=== PATIENT | female | born 1985 | race Caucasian/White ===

== ENCOUNTER → 2018-02-07 | Outpatient (REF) | payer OTHER ==
[~2018-02-07] MED LIST: ACET-1718 PO; CIPDEXPT EACH EAR; IBUP800T37 PO; LEVO1TAB75 PO
== END ==
LOC: ZZSENDIN 13:00
PROVIDERS: ATTEND Obstetrics & Gynecology
DX: Z36.89 Encounter for other specified antenatal screening (principal); Z3A.27 27 weeks gestation of pregnancy
CPT/HCPCS: 82950; 85027

== ENCOUNTER 2018-05-06 06:24 | Inpatient (IN) | payer OTHER ==
[~2018-05-06] VITALS: Ht 175.3 cm; Wt 86.6 kg
[2018-05-09] MEDS ORDERED: OXYTOCIN 30 UNIT/D5LR 500 ML 500 ML IV PRN ×2 (05:22)
[2018-05-09] MEDS ORDERED: FAMOTIDINE(*) 20MG/50ML PREMIX 50 ML IVPB PRN (05:22)
[2018-05-09] MEDS ORDERED: cefOXitin SOD 2 GM VIAL 2 GM in NS(*) 0.9% 100 ML BAG 100 ML IVPB PRN (05:25)
[2018-05-09] MEDS ORDERED: LIDOCAINE/SOD BICARB 8.4% SYR SC PRN ×2 (05:25)
[2018-05-09] MEDS ORDERED: fentaNYL CITR 100 MCG/2 ML AMP IVP PRN (05:25)
[2018-05-09] MEDS ORDERED: MISOPROSTOL 25 MCG CAP PV PRN (05:25)
[2018-05-09] MEDS ORDERED: LIDOCAINE 1% LOCAL 300 MG/30ML INJ PRN (05:25)
[2018-05-09] MEDS ORDERED: TERBUTALINE SULF 1 MG/ML VIAL SUBQ PRN (05:25)
[2018-05-09] MEDS ORDERED: METOCLOPRAMIDE 10 MG/2 ML SDV IVP PRN (05:25)
[2018-05-09 06:00] VITALS: BP 120/68; Ht 175.3 cm; Wt 86.6 kg
[2018-05-09] MEDS: LR(*) 1000 ML BAG 1,000 ML IV PRN ×2 (06:30→11:24)
[2018-05-09 06:33] LABS: PLATELET COUNT, AUTOMATED 204 K/uL (150-450)
[2018-05-09] MEDS ORDERED: PREN-127 PO (07:22)
[2018-05-09] MEDS ORDERED: BUPIVACAINE 0.5% INJ 30ML VIAL EPI PRN (08:05)
[2018-05-09] MEDS ORDERED: LIDOCAINE/PF 2% 200MG/10ML AMP 200 MG/10 ML AMPUL EPI PRN (08:05)
[2018-05-09] MEDS ORDERED: ONDANSETRON 4 MG/2 ML VIAL IVP PRN (08:05)
[2018-05-09] MEDS ORDERED: fentaNYL CITR 100 MCG/2 ML AMP IT PRN (08:05)
[2018-05-09] MEDS ORDERED: FENTANYL/ROPIVACAINE 100 ML BAG EPI PRN (08:05)
[2018-05-09] MEDS ORDERED: BUPIVACAINE 0.25% MPF INJ EPI PRN (08:05)
[2018-05-09] MEDS ORDERED: ePHEDrine 25 MG/5 ML DISP.SYR IVP PRN (08:05)
[2018-05-09] MEDS ORDERED: LIDO/EPI 2% MPF 1:200,000 20ML EPI PRN (08:05)
--- NOTE | 2018-05-09 11:14 | History & Physical ---
History of Present Illness Age of Patient: 32 : 2 Para or TPAL: 1 EDC per LMP: May 06, 2018 Estimated Gestational Age: 40 Chief Complaint Labor induction History of Present Illness Presents for scheduled elective labor induction. History of prior 36 week delivery. This treated with 17OH progesterone for reduced risk. No complications throughout . GBS negative. Past Medical, Surgical, Family and Obstetric Histories reviewed. Please see ACOG chart. History Allergies: Coded Allergies: No Known Drug Allergies (Unverified , 04/30/15) Social History: , works as resource coordinator, has master's degree. No T/E/D. Med Rec Home Meds Reported Medications Vits W-Ca,Fe,Fa(<1MG) ( VITAMINS) 1 Each Tablet, 1 EACH PO DAILY, TAB 05/09/18 Discontinued Scripts Ibuprofen (IBUPROFEN) 800 Mg Tablet, 1 TAB PO Q8H Y for pain, #30 TAB 0 Refills TAKE WITH FOOD EVERY 8 HOURS Prov:JONE PLATT MD 06/12/16 Acetaminophen With Codeine # 3 (ACETAMINOPHEN-COD #3 TABLET) 1 Each Tablet, 1-2 EACH PO Q4H Y for pain, #30 TAB 0 Refills Take 1-2 tablets as needed for pain no closer than every 4 hours. Prov:JONE PLATT MD 06/12/16 Review of Systems All Systems Reviewed/Normal: Yes, Except as Noted Exam General Exam Vital Signs Vital Signs Date Time Temp Pulse Resp B/P (MAP) Pulse Ox O2 Delivery O2 Flow Rate FiO2 05/09/18 06:00 98.2 16 120/68 (85) Room Air General Apperance: Alert/Awake/No Acute Distress Neuro: No Gross deficits Respiratory: No Respiratory Distress Abdomen: Soft, Non-Tender, Non-Distended, Gravid - Non-Tender Extremities: No Cyanosis,Clubbing or Edema Integumentary: Skin Intact without Lesions or Rash Psychological: Alert & Oriented X3, Appropriate Mood & Affect Cervical Dialation: 2 Cervical Effacement (%): 75 Cervical Consistency: Soft Cervical Position: Anterior Station: -2 Presentation: Vertex Fetus Heart Tone Variabilty: Moderate FHT Accelerations: 15X15 FHT Category: I Medical Decision Making Data Points Result Diagram: 05/09/18 0605 VTE Prophylasis: Adult Deep Vein Thrombosis/Pulmonary: No Pharmacological Contraindicati: Pt at Low Risk for VTE Mechanical Contraindications: Pt at Low Risk for VTE 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 Expecting epidural at some point. ZHANNA JARA MD May 09, 2018 11:14
--- NOTE | 2018-05-09 11:24 | Labor Progress Note ---
Labor Subjective Progress Notes Subjective Pain increasing with contractions. Tolerating well. 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 Continue to titrate Pitocin to contractions. Epidural as needed. ZHANNA JARA MD May 09, 2018 11:24
[2018-05-09] MEDS ORDERED: EPIDURAL KEYS XX PRN (12:00)
--- NOTE | 2018-05-09 12:06 | Anesthesia OB Pre-Anes Eval ---
History of Present Illness Anesthesia Start Date: May 09, 2018 Anesthesia Start Time: 11:20 OB Anesthesia Diagnosis: induction - elective EDC: May 06, 2018 : 2 Para: 1 Vital Signs: Vital Signs Date Time Temp Pulse Resp B/P (MAP) Pulse Ox O2 Delivery O2 Flow Rate FiO2 05/09/18 06:00 98.2 16 120/68 (85) Room Air Pain Ratin Result Diagram: 05/09/18 0605 Height (Inches): 69.00 Weight (Pounds): 191 BMI Calculated: 28.20 Past Medical History Medical History: no pertinent history Surgical History: other (ear surgery as a child.) Previous Anesthesia: general, epidural Attended Childbirth Classes?: No Hx Anesthesia Reactions: No Hx Family Anesthesia Reaction: No Current Medications: pitocin Home Meds Reported Medications Vits W-Ca,Fe,Fa(<1MG) ( VITAMINS) 1 Each Tablet, 1 EACH PO DAILY, TAB 05/09/18 Discontinued Scripts Ibuprofen (IBUPROFEN) 800 Mg Tablet, 1 TAB PO Q8H Y for pain, #30 TAB 0 Refills TAKE WITH FOOD EVERY 8 HOURS Prov:JONE PLATT MD 06/12/16 Acetaminophen With Codeine # 3 (ACETAMINOPHEN-COD #3 TABLET) 1 Each Tablet, 1-2 EACH PO Q4H Y for pain, #30 TAB 0 Refills Take 1-2 tablets as needed for pain no closer than every 4 hours. Prov:JONE PLATT MD 06/12/16 Allergies: Coded Allergies: No Known Drug Allergies (Unverified , 04/30/15) Anesthesia OB ROS Neurological: No migraines/headaches, No seizures, No neuropathy, No other ENT: Denies Tooth caps, Denies Loose teeth, Denies Chipped teeth, Denies Dentures, Denies Bridges, Denies Retainers, Denies Veneers, Denies Implants, Denies Tongue ring, Denies Other Pulmonary: No asthma, No smoker (pks/day/yrs), No other Airway Class: ll Cardiovascular ROS: No edema, No arrhythmia, No other GI ROS: clear liquids ROS: No Herpes, No STD(s), No Liver Disease, No Renal Disease, No Other Endocrine ROS: No diabetes, No gestational diabetes, No thyroid disorder, No other Musculoskeletal ROS: No low back pain, No low back injury, No scoliosis, No other ASA Classification: 1 Assessment and Plan Anesthesia Plan: ZACHARIAH DORAN CRNA May 09, 2018 12:06
--- NOTE | 2018-05-09 12:10 | Procedure Note ---
Anesthetic Placement Note Anesthesia Plan: LEB Permit for Anesthesia Signed: Yes Anesthesia Technique: Patient Sitting Anesthesia Prep: Chlorhexidine Interspace: L 3-4 Local Anesthetic: 1% Lidocaine Amount Local - cc's: 3 Anesthesia Needle: 17g Nic/Uzmaff Anesthesia Attempts: 1 (with 2 needle redirections) Loss of Resistance: Normal Saline Depth of NEEMA (cm): 7 Epidural Needle Placement: No CSF, No Blood, No Parasthesia Cerebral Spinal Fluid: No Catheter Insertion (cm): 4 Catheter Type: Dwyer - Spring Wound Epidural Dressing: Tegaderm, Tape, Adhesive [place] Anesthesia Tray: Lot Number ([id number]), Expiration Date (06/24/2019), Reference Number ([id number]) Anesthesia Medications: Epidural Test Dose: 1.5 Lido/Epi (1:200,000), Dose - mL (5mL given in divided doses over 2 minutes.), Time (1141), Negative Epidural Loading Dose: 0.2% Ropivicaine, With Fentanyl 2mcg/ml, Dose - ml (5), Time (1150) Epidural Infusion: 0.2% Ropivicaine, With Fentanyl 2mcg/ml, Start Time: (1150) Epidural Pump Setting: Bolus Dose - mL (4), Lockout - Minutes (15), Maintenance Rate - mL/hr (7), Maximum per Hour - mL (19) Complications: None Comment: 100 mcg Fentanyl bolused via epidural at 1145 ZACHARIAH KIRKPATRICK CRNA May 09, 2018 12:10
--- NOTE | 2018-05-09 12:47 | Anesthesia Progress Note ---
Progress/Maintenance Anesthesia Note Date: May 09, 2018 Anesthesia Note Time: 12:45 Pump: On Pump Rate (ML/HR): 7 Position: Other (lithotomy, ready to push) Drug Bolus: 0.25% Marcaine (6 mL bolus given via epidural ) Anesthesia Treatment: Pt. c/o pain in perineum. Bolus administered. Now pushing. ZACHARIAH KIRKPATRICK CRNA May 09, 2018 12:47
--- NOTE | 2018-05-09 13:13 | OB Delivery Note ---
Delivery Note Vaginal Delivery Type: Spont. Vaginal Delivery Delivery Date: May 09, 2018 Delivery Time: 12:52 Estimated Gestational Age(wks): 40.3 Delivery Anesthesia: Epidural Sex: Male Apgars: 1 Minute (9), 5 Minute (10) Estimated Blood Loss: 100 Notes: Pt admitted for IOL scheduled and elective. Was 2 cm on admission and progressed to 4 cm by 1100. AROM with clear fluid and epidural placed. Progressed rapidly to complete by 1240. Delivery at 1252 with coached pushing over intact perineum. Perineum was stabilized during delivery. Shoulders delivered without manipulation. Placenta delivered spontaneous and intact. No complications. Wind Tunnel Technician in Attendence: No Copies to: ZHANNA JARA MD, TRAVIS MD May 09, 2018 13:13
--- NOTE | 2018-05-09 13:17 | Anesthesia Progress Note ---
Progress/Maintenance Anesthesia Note Date: May 09, 2018 Anesthesia Note Time: 12:52 Pain Intensity: 0 Pump: Off Motor Level: Bending Knees-Bilateral Assessment and Plan Anesthesia Stop Day: May 09, 2018 Anesthesia Stop Time: 12:52 ZACHARIAH KIRKPATRICK CRNA May 09, 2018 13:17
[2018-05-09] MEDS ORDERED: HYDROmorphone HCL 2 MG TAB PO PRN (13:45)
[2018-05-09] MEDS ORDERED: MAGNESIUM HYDROXIDE* 30ML UDCP PO PRN (13:45)
[2018-05-09] MEDS ORDERED: HYDROCORTISONE 2.5% CR 30GM TB PR PRN (13:45)
[2018-05-09] MEDS ORDERED: GLYCERIN/WITCH HAZEL LEAF 1 PK TP PRN (13:45)
[2018-05-09] MEDS ORDERED: BENZOCAINE 20% 60 ML BTL TP PRN (13:45)
[2018-05-09] MEDS ORDERED: ACETAMINOPHEN 325 MG TAB PO PRN (13:45)
[2018-05-09] MEDS ORDERED: LANOLIN OINT 7 GM TUBE TP PRN (13:45)
[2018-05-09] MEDS: IBUPROFEN 800 MG TAB PO SCH ×2 (14:36→21:33)
[2018-05-09 15:15] VITALS: BP 109/55
[2018-05-09 19:08] VITALS: BP 116/60
[2018-05-09] MEDS: DOCUSATE CALCIUM 240 MG CAP PO SCH (21:33)
[2018-05-09 23:00] VITALS: BP 117/69
[2018-05-10 02:48] VITALS: BP 97/55
[2018-05-10] MEDS: IBUPROFEN 800 MG TAB PO SCH ×2 (05:27→14:10)
[2018-05-10] MEDS ORDERED: HYDR2TAB4 PO (07:41)
[2018-05-10] MEDS ORDERED: IBUP800T37 PO (07:41)
--- NOTE | 2018-05-10 07:41 | OB/GYN Progress Note ---
OB Subjective Progress Notes Subjective Pain controlled, Tolerating diet and activity. Baby . Normal lochia. GI: POS Flatus, NEG Nausea, NEG Vomiting : Voiding Well Pain: Mild OB Objective Physical Exam Vital Signs Date Time Temp Pulse Resp B/P (MAP) Pulse Ox O2 Delivery O2 Flow Rate FiO2 05/10/18 02:48 97.8 60 16 97/55 (69) Room Air General Appearance: Alert/Awake/No Acute Distress Neurological: No Gross deficits Cardiovascular: Regular Rate and Rhythm Respiratory: Clear to Auscultation Abdomen: Soft, Non-Tender, Non-Distended, Bowel Sounds Present, Fundus Firm Extremities: No Cyanosis,Clubbing or Edema, No Edema Integumentary: Skin Intact without Lesions or Rash Psychological: Alert & Oriented X3, Appropriate Mood & Affect Result Diagram: 05/10/18 0639 Assessment and Plan Problems: (1) 40 weeks gestation of (2) care and examination immediately after delivery Status: Acute Assessment & Plan: Pain controlled, Tolerating diet and activity. Baby . Normal lochia. WAGNER CUADRA MD May 10, 2018 07:40
--- NOTE | 2018-05-10 07:43 | OB/GYN Discharge Summary ---
Discharge Summary Reason for Hosp/Final Diag: (1) 40 weeks gestation of (2) care and examination immediately after delivery Status: Acute Hospital Course & Plan: Vag delivery on day 1, Pain controlled, Tolerating diet and activity. Baby . Normal lochia. Lates Vital Signs Vital Signs Date Time Temp Pulse Resp B/P (MAP) Pulse Ox O2 Delivery O2 Flow Rate FiO2 05/10/18 02:48 97.8 60 16 97/55 (69) Room Air Weight (Pounds): 191 Result Diagram: 05/10/18 0639 Condition: Improved Discharge: Home, Self [facility] Meds Active Scripts Ibuprofen (IBUPROFEN) 800 Mg Tablet, 1 TAB PO Q8H, #30 TAB 0 Refills Take with food every 8 hours. Prov:WAGNER CUADRA MD 05/10/18 Hydromorphone Hcl (HYDROMORPHONE HCL) 2 Mg Tablet, 2-4 MG PO Q4H for PAIN, #20 TAB 0 Refills Prov:WAGNER CUADRA MD 05/10/18 Reported Medications Vits W-Ca,Fe,Fa(<1MG) ( VITAMINS) 1 Each Tablet, 1 EACH PO DAILY, TAB 05/09/18 Discontinued Scripts Ibuprofen (IBUPROFEN) 800 Mg Tablet, 1 TAB PO Q8H Y for pain, #30 TAB 0 Refills TAKE WITH FOOD EVERY 8 HOURS Prov:JONE PLATT MD 06/12/16 Acetaminophen With Codeine # 3 (ACETAMINOPHEN-COD #3 TABLET) 1 Each Tablet, 1-2 EACH PO Q4H Y for pain, #30 TAB 0 Refills Take 1-2 tablets as needed for pain no closer than every 4 hours. Prov:JONE PLATT MD 06/12/16 Follow up with: Dr. Bowser [phone] Follow up in: 6 wks PP or PO Discharge Diet: As Tolerates Discharge Activity: Pelvic Rest Copies to: WAGNER CUADRA MD, JOHN MD May 10, 2018 07:42
[2018-05-10 08:30] VITALS: BP 119/61
[2018-05-10] MEDS: DOCUSATE CALCIUM 240 MG CAP PO SCH (08:32)
== END 2018-05-10 15:00 | disposition home or self-care (01) | DRG 775 ==
LOC: OB 05-09 05:20
PROVIDERS: ADMIT Obstetrics & Gynecology; ATTEND Obstetrics & Gynecology
PROC: 10E0XZZ Delivery of Products of Conception, External Approach (ICD-10-PCS; principal; 2018-05-09)
PROC: 10907ZC Drainage of Amniotic Fluid, Therapeutic from Products of Conception, Via Natural or Artificial Opening (ICD-10-PCS; 2018-05-09)
PROC: 3E033VJ Introduction of Other Hormone into Peripheral Vein, Percutaneous Approach (ICD-10-PCS; 2018-05-09)
DX: O80 Encounter for full-term uncomplicated delivery (principal); Z37.0 Single live birth; Z3A.40 40 weeks gestation of pregnancy
CPT/HCPCS: 36415; 85025; 85027; 86850; 86900; 86901; J2590; J3010; J7120